=== PATIENT | male | born 1970 | race Caucasian/White ===

== ENCOUNTER 2023-09-06 14:05 | Outpatient (OUT) | payer BC, SELFPAY | END 2023-09-06 14:06 | disposition home or self-care (01) | LOC: LAB 14:09 | PROVIDERS: PCP Family Medicine | DX: Z01.818 Encounter for other preprocedural examination (principal) | CPT/HCPCS: 87081 ==

== ENCOUNTER 2023-10-20 14:46 | Outpatient (RCR) | payer BC, SELFPAY | END 2024-01-12 12:40 | disposition home or self-care (01) | LOC: PT 14:46 | PROVIDERS: PCP Family Medicine | DX: M12.561 Traumatic arthropathy, right knee (principal) | CPT/HCPCS: 97010; 97110; 97112; 97113; 97140 ==

== ENCOUNTER 2024-10-19 14:58 | Outpatient (OUT) | payer BC, SELFPAY ==
--- NOTE | 2024-10-19 15:00 | MR_ITS ---
[facility] [id number] Patient Name: TORO GARCÍA MRN: [id number] date: 1970 Sex: M Assigned Patient Location: MRI Current Patient Location: Accession/Order Number: [id number] Exam Date: 10/19/2024 15:15 Report Date: 10/20/2024 06:49 At the request of: FAVIAN HARDING Procedure: MR thoracic spine wo con EXAMINATION: MR thoracic spine wo con HISTORY: Chronic Pain Due To Injury, Closed Fracture 7th Vertebra COMPARISON: No relevant comparison available. TECHNIQUE: Axial T2; Sagittal T1, T2, and Stir sequences. Images were performed without contrast. FINDINGS: CORD: Normal caliber, contour, and signal intensity. BONES: Slight anterior wedging of T6 vertebral body consistent with patient history of remote compression fracture. No abnormal T2 signal within the vertebral body to suggest progression of fracture. Small area of mild T2 signal involving anterior inferior corner of T7 favoring degenerative/edematous/Modic type I changes. Skin surface marker localizing patient's area of pain is posterior to T9-T10, without appreciable abnormality. Mild foramen narrowing at this level. DISCS: No significant disc space narrowing or appreciable disc protrusion. PARASPINAL AREA: No visible mass. OTHER: Negative. MR/MR thoracic spine wo con IMPRESSION: 1. No acute or specific findings to account for patient's symptoms. 2. Chronic changes detailed above. Electronically authenticated by: ADDY FISHER Date: 10/20/2024 06:49
--- OUTSIDE RECORDS SUMMARY | 2024-10-19 15:04 | XMS_ITS | CCD ---
Author Organization [facility] Care Team Providers Care Sack Cleaner Name Role Phone GENEVIEVE REARDON Admitting Unavailable GENEVIEVE REARDON Unavailable GENEVIEVE REARDON Attending Unavailable DR YENY SHIELDS Primary Care Unavailable ALYSON, DR RAMOS Primary Care Unavailable ALE LUO Admitting Unavailable ALE LUO Consulting Unavailable ALE LUO Attending Unavailable YENY SHIELDS Primary Care Unavailable YENY SHIELDS Referring Unavailable CAROLINA WELLER Admitting Unavailable CAROLINA WELLER Attending Unavailable Yeny Shields MD Unavailable Yeny Shields MD Primary Care Provider [phone] YENY SHIELDS Attending Unavailable FAVIAN LOPEZ Attending Unavailable DARIEL KU Attending Unavailable ANGELLA, DARIEL Attending Unavailable ANGELLA, DARIEL Attending Unavailable DARIEL KU Admitting Unavailable DARIEL KU Referring Unavailable ANGELLA, DARIEL Attending Unavailable Medications Current Medications Medication Drug Class(es) Dates Sig (Normalized) Sig (Original) [id number] 200 actuat albuterol 0.09 mg/actuat metered dose inhaler (4 sources) beta2-Adrenergic Agonist Start: 09-27-2024 End: 09-27-2025 take 2 puff(s) by inhalation every four hours for wheezing albuterol HFA (ProAir HFA) 90 mcg/act inhaler Indications: Exercise-induced asthma (CMS/HCC) Inhale 2 puffs every 4 (four) hours if needed for wheezing 18 g 11 09/27/2024 09/27/2025 Active End: 09-27-2024 albuterol HFA (ProAir HFA) 9 0 mcg/act inhaler 09/27/2024 Discontinued (Reorder) amoxicillin 875 mg oral tablet (2 sources) Penicillin-class Antibacterial Start: 09-27-2024 End: 10-07-2024 take 1 tablet by mouth in the morning amoxicillin (Amoxil) 875 MG tablet Indications: Non-recurrent acute suppurative otitis media of left ear without spontaneous rupture of tympanic membrane Take 1 tablet (875 mg) by mouth in the morning and 1 tablet (875 mg) before bedtime. Do all this for 10 days. 20 tablet 09/27/2024 10/07/2024 Active aspirin 325 mg oral tablet (2 sources) Platelet Aggregation Inhibitor, Nonsteroidal Anti-inflammatory Drug Start: 10-07-2023 take 1 tablet by mouth in the morning aspirin 325 MG tablet Take 325 mg by mouth in the morning. 10/07/2023 Active atorvastatin 20 mg oral tablet (5 sources) HMG-CoA Reductase Inhibitor Start: 05-08-2024 End: 09-27-2025 take 1 tablet by mouth once daily atorvastatin (Lipitor) 20 MG tablet Indications: Hypertriglyceridemia (CMS/HCC) Take 1 tablet (20 mg) by mouth Daily 90 tablet 3 09/27/2024 09/27/2025 Active baclofen 10 mg oral tablet (5 sources) gamma-Aminobutyric Acid-ergic Agonist Start: 05-17-2024 End: 09-27-2025 take 1 tablet by mouth in the morning, then take 1 tablet by mouth in the evening, then take 1 tablet by mouth at bedtime baclofen (Lioresal) 10 MG tablet Indications: Personal history of (healed) traumatic fracture Take 1 tablet (10 mg) by mouth in the morning and 1 tablet (10 mg) in the evening and 1 tablet (10 mg) before bedtime. 270 tablet 3 09/27/2024 09/27/2025 Active busPIRone hydrochloride 5 mg oral tablet (5 sources) Start: 09-27-2024 take 1 tablet by mouth three times daily as needed for anxiety busPIRone (Buspar) 5 MG tablet Indications: Adjustment disorder with anxiety (CMS/HCC) Take 1 tablet (5 mg) by mouth 3 (three) times a day as needed (anxiety) 90 tablet 3 09/27/2024 Active Start: 09-27-2024 take 1 tablet by elaina th three times daily as needed for anxiety busPIRone (Buspar) 5 MG tablet Indications: Adjustment disorder with anxiety (CMS/HCC) Take 1 tablet (5 mg) by mouth 3 (three) times a day as needed (anxiety) 90 tablet 3 09/27/2024 Active Start: 06-14-2023 End: 09-27-2024 take 1 tablet by mouth three times daily as needed busPIRone (Buspar) 5 MG tablet Indications: Adjustment disorder with anxiety (CMS/HCC) TAKE 1 TABLET BY MOUTH THREE TIMES A DAY NEEDED 90 tablet 13 06/14/2023 09/27/2024 Discontinued (Reorder) citalopram 40 mg oral tablet (5 sources) Serotonin Reuptake Inhibitor Start: 09-27-2024 End: 09-27-2025 take 1 tablet by mouth once daily citalopram (CeleXA) 40 MG tablet Indications: Adjustment disorder with depressed mood (CMS/HCC) Take 1 tablet (40 mg) by mouth Daily 90 tablet 3 09/27/2024 09/27/2025 Active Start: 03-20-2024 End: 09-27-2024 take 1.5 tablets by mouth once daily citalopram (CeleXA) 20 MG tablet Indications: Adjustment disorder with anxiety (CMS/HCC) Take 1.5 tablets (30 mg) by mouth Daily 45 tablet 03/20/2024 09/27/2024 Discontinued (Ineffective) gabapentin 300 mg oral capsule (5 sources) Anti-epileptic Agent Start: 09-27-2024 End: 09-27-2025 take 1 capsule by mouth in the morning, then take 1 capsule by mouth in the evening, then take 1 capsule by mouth at bedtime gabapentin (Neurontin) 300 MG capsule Indications: Personal history of (healed) traumatic fracture , Chronic pain due to injury Take 1 capsule (300 mg) by mouth in the morning and 1 capsule (300 mg) in the evening and 1 capsule (300 mg) before bedtime. 90 capsule 11 09/27/2024 09/27/2025 Active Start: 04-25-2024 End: 04-25-2025 take 1 capsule by mouth every eight hours gabapentin (Neurontin) 100 MG capsule Indications: Personal history of (healed) traumatic fracture Take 1 capsule (100 mg) by mouth every 8 (eight) hours 90 capsule 11 04/25/2024 09/27/2024 Discontinued (Ineffective) hydroCHLOROthiazide 12.5 mg / olmesartan medoxomil 40 mg oral tablet (5 sources) Thiazide Diuretic, Angiotensin 2 Receptor Kiara Start: 01-08-2025 take 1 tablet by mouth once daily olmesartan-hydroCHLOROthiazide (BENIcar HCT) 40-12.5 MG tablet Indications: Essential (primary) hypertension (CMS/HCC) Take 1 tablet by mouth Daily 90 tablet 3 09/27/2024 Active Start: 09-27-2024 take 1 tablet by elaina th once daily olmesartan-hydroCHLOROthiazide (BENIcar HCT) 40-12.5 MG tablet Indications: Essential (primary) hypertension (CMS/HCC) Take 1 tablet by mouth Daily 90 tablet 3 09/27/2024 Active Start: 01-12-2024 End: 09-27-2024 take 1 tablet by mouth once daily olmesartan-hydroCHLOROthiazide (BENIcar HCT) 40-12.5 MG tablet Indications: Essential (primary) hypertension (CMS/HCC) TAKE 1 TABLET BY MOUTH EVERY DAY 90 tablet 1 01/12/2024 09/27/2024 Discontinued (Reorder) traMADol hydrochloride 50 mg oral tablet (2 sources) Opioid Agonist Start: 09-27-2024 End: 10-04-2024 take 1 tablet by mouth every six hours for pain traMADol (Ultram) 50 MG tablet Indications: Chronic pain due to injury Take 1 tablet (50 mg) by mouth every 6 (six) hours if needed for severe pain for up to 7 days 28 tablet 09/27/2024 10/04/2024 Active Problems Active Problems Problem Classification Problem Date Documented Da te Episodic/Chronic Adjustment disorders (10 sources) Adjustment disorder with anxious mood; Translations: [Adjustment disorder with anxiety] Onset: 05-10-2008 10-18-2023 Chronic Asthma (5 sources) Exercise-induced asthma; Translations: [Exercise induced bronchospasm] Onset: 03-07-2019 10-18-2023 Chronic Disorders of lipid metabolism (8 sources) Hypertriglyceridemi a; Translations: [Hyperchylomicronem ia] Onset: 05-10-2008 10-18-2023 Chronic E Codes: Cut/pierceb (1 source) Other foreign body or object entering through skin, initial encounter; Translations: [OTH FB/OBJ ENTERING THRU SKIN INIT] Onset: 12-30-2021 Episodic Essential hypertension (5 sources) Essential hypertension; Translations: [Essential (primary) hypertension] Onset: 06-01-2018 10-18-2023 Chronic Joint disorders and dislocations; trauma-related (5 sources) Traumatic arthropathy-knee; Translations: [Traumatic arthropathy, right knee] Onset: 06-28-2023 10-18-2023 Chronic Malaise and fatigue (3 sources) Fatigue; Translations: [Chronic fatigue, unspecified] Onset: 10-18-2023 10-18-2023 Chronic Mood disorders (3 sources) Depressive disorder; Translations: [Depressive disorder] Onset: 05-10-2008 10-18-2023 Chronic Open wounds of extremities (4 sources) Laceration without foreign body of right hand, initial encounter; Translations: [LACERATION W/O FB RT HAND INITIAL] Onset: 12-26-2021 Episodic Other fractures (2 sources) Fracture of seventh thoracic vertebra; Translations: [Unspecified fracture of T7-T8 vertebra, sequela] 09-27-2024 Episodic Other injuries and conditions due to external causes (5 sources) H/O: fracture; Translations: [Personal history of (healed) traumatic fracture] Onset: 10-18-2023 10-18-2023 Episodic Other male genital disorders (3 sources) Male erectile dysfunction, unspecified; Translations: [Impotence of organic origin] Onset: 10-18-2023 10-18-2023 Chronic Other nervous system disorders (7 sources) Chronic pain due to injury; Translations: [Chronic pain due to trauma] Onset: 10-18-2023 10-18-2023 Chronic Other nervous system disorders (3 sources) Chronic pain; Translations: [Other chronic pain] Onset: 05-10-2008 10-18-2023 Chronic Other nutritional; endocrine; and metabolic disorders (3 sources) Cholesterol level - finding; Translations: [Lipoprotein deficiency] Onset: 10-18-2023 10-18-2023 Chronic Other upper respiratory infections (3 sources) Sinusitis; Translations: [Chronic sinusitis, unspecified] Onset: 10-18-2023 10-18-2023 Chronic Otitis media and related conditions (2 sources) Acute suppurative otitis media without spontaneous rupture of ear drum; Translations: [Acute suppurative otitis media without spontaneous rupture of ear drum, left ear] 09-27-2024 Episodic Unclassified (2 sources) Fracture of seventh thoracic vertebra 09-27-2024 Past or Other Problems Problem Classification Problem Date Documented Da te Episodic/Chronic Fracture of lower limb (10 sources) Closed fracture of right patella; Translations: [Unspecified fracture of right patella, initial encounter for closed fracture] Onset: 08-02-2019 10-18-2023 Episodic Immunizations and screening for infectious disease (4 sources) Encounter for immunization; Translations: [Suspected clinical finding] Onset: 12-30-2021 10-18-2023 Episodic Other fractures (3 sources) Closed fracture thoracic vertebra; Translations: [Unspecified fracture of unspecified thoracic vertebra, initial encounter for closed fracture] Onset: 05-10-2008 10-18-2023 Episodic Residual codes; unclassified (3 sources) Family history of prostate cancer; Translations: [Family history of malignant neoplasm of prostate] Onset: 10-18-2023 10-18-2023 Episodic Residual codes; unclassified (3 sources) Persistent insomnia; Translations: [Insomnia, unspecified] Onset: 05-10-2008 10-18-2023 Episodic Residual codes; unclassified (2 sources) Pain, unspecified; Translations: [Pain, unspecified] Onset: 10-06-2023 Episodic Spondylosis; intervertebral disc disorders; other back problems (3 sources) Low back pain; Translations: [Lumbago] Onset: 05-10-2008 10-18-2023 Episodic Sprains and strains (6 sources) Lumbar sprain; Translations: [Sprain of ligaments of lumbar spine, initial encounter] Onset: 05-10-2008 10-18-2023 Episodic Results Test Name Value Interpretation Reference Range Facil ity 36on 09-27-2024 36 Gave the esol teacher assistant Karina Morales information [facility] 36 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 States he has left multiple messages and haven't received any word back. He states he doesn't want to subpeona dr ku but he will if he needs to. Normal [facility] Follow-Upon 01-31-2024 Follow-Up [id number] Mario García 1970 M Date Provider Department Center 01/31/2024 DARIEL MILLAN MP ORTHO MPORTHO Family History Problem Relation Age of Onset Diabetes Mother Diabetes Father Family Status - Relation Status Age at Mother Alive Father Alive Level of Service:06813 [place] OFFICE/OUTPATIENT ESTABLISHED LOW MDM 20 MIN Reason for Visit and Comments: Pain [136] [facility] 36on 01-03-2024 36 Work note was emailed Normal [facility] 36 Patient will be returning to work on wed, employer requesting note to be emailed. Please give patient a call back with additional requested information, thank you [facility] 36on 12-20-2023 36 Approving, but needs appt for additional refills. [facility] 36on 12-07-2023 36 Note was faxed to [phone] [facility] 36 PATIENT WOULD LIKE A CALL REGARDING DISABILITY DATE CHANGE [facility] Orders Onlyon 12-07-2023 Orders Only [id number] Mario García 1970 M Date Provider Department Center 12/07/2023 GHAZALA FAUSTIN MP ORTHO MPORTHO Family History Problem Relation Age of Onset Diabetes Mother Diabetes Father Family Status - Relation Status Age at Mother Alive Father Alive [facility] Office Visiton 11-29-2023 Follow-up visit [id number] Mario García 1970 M Date Provider Department Center 11/29/2023 DARILE MILLAN MP MPORTHO Family History Problem Relation Age of Onset Diabetes Mother Diabetes Father Family Status - Relation Status Age at Mother Alive Father Alive Level of Service:05279 [place] POSTOP FOLLOW UP VISIT RELATED TO ORIGINAL PX Reason for Visit and Comments: Pain [136] [facility] 36on 11-17-2023 36 Work note was faxed Normal [facility] 36 Insurance calling to see if theres an estimated RTW date. Please call or fax a letter over. [facility] 36on 11-10-2023 36 Approving, but needs appt for additional refills. [facility] Office Visiton 10-18-2023 Follow-up visit [id number] Mario García 1970 M Date Provider Department Center 10/18/2023 DARIEL MILLAN MP ORTHO MPORTHO Family History Problem Relation Age of Onset Diabetes Mother Diabetes Father Family Status - Relation Status Age at Mother Alive Father Alive Level of Service:89312 [place] POSTOP FOLLOW UP VISIT RELATED TO ORIGINAL PX Reason for Visit and Comments: Post-op [483] Normal [facility] 30on 10-06-2023 30 Problem: Pain - Adul t Goal: Verbalizes/displays adequate comfort level or baseline comfort level Outcome: Progressing Problem: Chronic Conditions and Co-morbidities Goal: Patient's chronic conditions and co-morbidity symptoms are monitored and maintained or improved Outcome: Progressing Problem: Musculoskeletal - Adult Goal: Maintain proper alignment of affected body part Outcome: Progressing The patient is Moderately Stable - Low risk of patient condition declining or worsening The patient's goals for the shift include The clinical goals for the shift include comfort Over the shift, the patient did not make progress toward the following goals. Barriers to progression include pain. Recommendations to address these barriers include pain control. Normal [facility] Anesthesiaon 10-06-2023 Anesthesia [id number] Mario García 1970 M Date Provider Department Center 10/06/2023 [facility] OR [facility] Family History Problem Relation Age of Onset Diabetes Mother Diabetes Father Family Status - Relation Status Age at Mother Alive Father Alive Normal [facility] MRSA/MSSA DNA NASALon 2023 MRSA DNA Negative Normal Negative [facility] Comment on above: Order Comment: Testi ng methodology is an automated qualitative in vitro diagnostic test for the directdetection and differentiation of Staphylococcus aureus (SA) DNA and methicillin-resistant Staphylococcus aureus (MRSA) DNA from nasal swabs in patients at risk for nasal colonization. The test utilizes real-time polymerase chain reaction (PCR) for the amplification of MRSA/SA DNA and fluorogenic target-specific hybridization probes for the detection of the amplified DNA. A negative result does not preclude nasal colonization. Performed By: #### L [id number] ####[facility] (BEAKER)[address] [place] [address] MSSA DNA Negative Normal Negative [facility] Comment on above: Order Comment: Testi ng methodology is an automated qualitative in vitro diagnostic test for the directdetection and differentiation of Staphylococcus aureus (SA) DNA and methicillin-resistant Staphylococcus aureus (MRSA) DNA from nasal swabs in patients at risk for nasal colonization. The test utilizes real-time polymerase chain reaction (PCR) for the amplification of MRSA/SA DNA and fluorogenic target-specific hybridization probes for the detection of the amplified DNA. A negative result does not preclude nasal colonization. 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 11MM TAPER POST Implanted Bone Cement CEMENT,BONE,R,[id number] - [id number] Implanted FEMORAL-TROCHLEA X-LARGE -ARTHROSURFACE Implanted PATELLA-ANATOMIC Implanted Staff: Veneer Taper: Joan Aguila RN; Myah Mason RN Relief Scrub: Valarie Goodson CST Scrub Person: Masha Cuevas CST Indications: Toro García is an 52 y.o. male who is having surgery for Traumatic arthritis of right knee [M12.561]. Procedure Details: The patient was seen in the preoperative area. The risks, benefits, complications, treatment options, non-operative alternatives, expected recovery and outcomes were discussed with the patient. The possibilities of reaction to medication, pulmonary aspiration, injury to surrounding structures, bleeding, recurrent infection, the need for additional procedures, failure to diagnose a condition, and creating a complication requiring transfusion or operation were discussed with the patient. The patient concurred with the proposed plan, giving informed consent. The site of surgery was properly noted/marked if necessary per policy. The patient has been actively warmed in preoperative area. Preoperative antibiotics have been ordered and given within 1 hours of incision. Venous thrombosis prophylaxis have been ordered including unilateral sequential compression device Findings: After confirmation and marking of the correct surgical extremity in the preoperative holding area, the patient was brought back to the operating suite and placed in the supine position. All pressure points were adequately padded. General endotracheal anesthesia was smoothly induced preoperative antibiotics were administered. The right knee was then prepped and draped in a sterile fashion. After observation of a surgical timeout procedure using 2 separate patient identifiers, we began with the case. We first created a standard midline incision and medial parapatellar approach to expose the joint. Here he had isolated PF DJD. The trochlea had thinned chondral loss centrally and medially. The patella had full thickness loss centrally. 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 This piece was excised using the rongeur. We first started with the resurfacing of the trochlea. We placed the guide and reamed an anatomic trochlear implant. We next inserted the central screw and then impacted the Arthrosurface HemiCAP trochlear implant. We now turned our attention to the patella. We sized the defect, then reamed and cemented in the Arthrosurface Patellar Button. Once the cement had cured, we let down the tourniquet. There was minimal bleeding. We then closed the medial parapatellar approach with 0 Vicryl in [id number] sutures followed by 0 Vicryl 2-0 Vicryl and a running subcuticular Biosyn suture for the skin incision. A sterile compressive wrap was applied followed by a knee immobilizer. Patient was then awakened and extubated and brought back to the PACU in stable condition I was present scrubbed and actively participating through all ernandez portions of the surgery estimated blood loss is minimal complications are none disposition is to the PACU in stable condition I was present scrubbed and actively participated for all ernandez portions of the procedure Complications: None; patient tolerated the procedure well. Disposition: PACU - hemodynamically stable. Condition: stable Dariel Ku Normal [facility] POCT GLUCOSE METER UNSOLICIT ED RESULTSon 10-06-2023 Glucose [Mass/Vol] 99 mg/dL Normal 70-105 [facility] Comment on above: Order Comment: Waive d Testing in the ED is performed under the ED CLIA certificate #[id number]. Result Comment: acle ment Performed By: #### L [id number] ####[facility] ([facility] [address])[address] [place] [address] on 10-05-2023 HP - Attestation signed by Dariel Ku MD at 10/06/2023 3:57 PM I personally saw and examined the patient on the same date of service as resident/fellow . I discussed the findings and therapeutic plan with the resident/fellow . I agree with the documentation, except for any edits/updates below. Teaching Physician's Revisions: No revisions ORTHOPEDIC SURGERY HISTORY AND PHYSICAL EXAMINATION CHIEF COMPLAINT: RIGHT KNEE PAIN HPI: Toro García is a 52 y.o. male with complaint of right knee pain. Pain began after they had a work related injury several years ago for which she fractured his right patella and underwent open duction internal fixation.. Patient had a right knee arthroscopy and hardware removal in 2020. Patient has undergone physical therapy and conservative measures with minimal improvement. He still undergoes intermittent clicking popping and swelling. Patient has x-ray demonstrating superior pole nonunion of the patella and postoperative posttraumatic changes. Patient also had MRI taken 06-07-2023 demonstrating superior pole patella irregularity concerning for nonunion as well as medial retinacular irregularities with evidence of intact ligaments no other obvious fractures or dislocations. Patient presents today for right knee nonunion excision with patellofemoral replacement. He denies any recent infections any additional systemic symptoms. His pain is largely unchanged.. They deny any other injuries. PMH: Anxiety, fatigue, depression, diabetes, hyperlipidemia, hypertension Pertinent Surgical Hx: ORIF right patella, right knee arthroscopy and hardware removal 2020 Pertinent Social Hx: Lives at home Currently taking any blood thinners: No known Personal or family history of bleeding or clotting disorders: No known Personal or family history of problems with anesthesia: No known Past Medical History: Diagnosis Date Anxiety Asthma Chronic fatigue Chronic pain disorder Closed fracture of dorsal (thoracic) vertebra (CMS/HCC) Depression Diabetes mellitus (CMS/HCC) ED (erectile dysfunction) Hyperlipidemia Hypertension Lumbago Sinusitis Traumatic arthritis of right knee Traumatic closed displaced fracture of patella with routine healing, right Past Surgical History: Procedure Laterality Date COLONOSCOPY KNEE SURGERY Right x2 No Known Allergies No current facility-administered medications for this encounter. Current Outpatient Medications: acetaminophen (Tylenol) 500 mg tablet, Pain Relief Extra Strength (acetaminophen) 500 mg tablet, Disp: , Rfl: albuterol 90 mcg/actuation inhaler, ProAir HFA 90 mcg/actuation aerosol inhaler, Disp: , Rfl: atorvastatin (Lipitor) 20 mg tablet, TAKE 1 TABLET BY MOUTH EVERY DAY FOR 90 DAYS, Disp: , Rfl: busPIRone (Buspar) 5 mg tablet, Take 5 mg by mouth if needed in the morning, at noon, and at bedtime., Disp: , Rfl: citalopram (CeleXA) 20 mg tablet, TAKE 1 AND 1/2 TABLETS DAILY BY MOUTH, Disp: , Rfl: olmesartan-hydrochlor othiazide (BENIcar HCT) 40-12.5 mg tablet, olmesartan 40 mg-hydrochlorothiazid e 12.5 mg tablet, Disp: , Rfl: Trelegy Ellipta 100-62.5-25 mcg blister with device, INHALE 1 PUFF INTO THE LUNGS EVERY DAY FOR 30 DAYS, Disp: , Rfl: Social History Socioeconomic History Marital status: Spouse name: Not on file Number of children: Not on file Years of education: Not on file Highest education level: Not on file Occupational History Not on file Tobacco Use Smoking status: Never Passive exposure: Never Smokeless tobacco: Never Vaping Use Vaping Use: Never used Substance and Sexual Activity Alcohol use: Not Currently Drug use: Never Sexual activity: Not on file Other Topics Concern Not on file Social History Narrative Not on file Social Determinants of Health Financial Resource Strain: Not on file Food Insecurity: Not on file Transportation Needs: Not on file Physical Activity: Not on file Stress: Not on file Social Connections: Not on file Intimate Partner Violence: Not At Risk (05/18/2023) Humiliation, Afraid, Rape, and Kick questionnaire Fear of Current or Ex-Partner: No Emotionally Abused: No Physically Abused: No Sexually Abused: No Housing Stability: Not on file Family History Problem Relation Name Age of Onset Diabetes Mother Diabetes Father Pertinent review of systems negative except for what is documented in the HPI. Physical exam: There were no vitals filed for this visit. General: No acute distress, comfortable Respiratory: Unlabored breathing with normal rate, no cough Cardiovascular: Warm well perfused extremities Psych: Appropriate mood behavior MSK: Right lower extremity -Examination the right knee reveals skin clean dry and intact. Well-healed surgical inc (more content not included)... Normal [facility] Patient Letter [facility] [place] 2022 Patient [place] [facility] [place] 07, 2023 TORO GARCÍA [address] [place] [phone] : 1970 Dear Toro, This is a SECOND ATTEMPT to remind you that you are due for an appointment with [facility]. Please contact our office at [phone] to schedule an appointment at your earliest convenience. Thank you, [facility] Patient Letter [facility] 2022 Patient Letter [facility] May 05, 2023 TORO GARCÍA [address] [place] [id number] : 1970 Dear Toro, This is a reminder that you are due for an appointment with [facility]. Please contact our office at [phone] to schedule an appointment at your earliest convenience. Thank you, [facility] In office Testingon 09-03-20 22 In office Testing [id number]:127 Normal [facility] KNEE RIGHT 3 [facility] 1 KNEE RIGHT 3 S [facility] Department of Radiology [address] [place] [phone] Patient Name: TORO GARCÍA : 1970 Sex: M Age: Race: White Pt. Location: Patient Status: D Ordered Date: 08/28/2021 2:30:00 PM Completed Date: 08/28/2021 02:31 PM Requesting Provider: CAROLINA WELLER Attending Provider: CAROLINA WELLER Report Copy To: YENY SHIELDS Signs & Symptoms: S82.031D Displ transverse fx r patella, subs for clos fx w routn heal I10 History: Comments: Views (X-RAY, KNEE): AP, Lateral, [place] Exam: KNEE RIGHT 3 [facility] KNEE RIGHT 3 [facility] HISTORY: Knee pain, fracture follow-up. COMPARISON: 04/11/2021. IMPRESSION: 1. Unchanged alignment superior patellar pole transverse fracture, incompletely healing. 2. Small joint effusion. Unchanged superior mildly displaced osseous fragment measuring 5 mm. Electronically signed: Damian Keys. Transcribed by: [email or web address], User Resident: Electronically Signed by: DAMIAN KEYS @ 08/29/2021 04:17 PM Normal [facility] Comment on above: Order Comment: Views (X-RAY, KNEE): AP, Lateral, [place] EYE FOR FOREIGN BODYon 05-06 EYE FOR FOREIGN BODY [facility] Department of Radiology [address] [place] [phone] Patient Name: TORO GARCÍA : 1970 Sex: M Age: Race: White Pt. Location: OUTP Patient Status: O Ordered Date: 05/06/2021 11:20:00 AM Completed Date: 05/06/2021 11:23 AM Requesting Provider: CAROLINA WELLER Attending Provider: CAROLINA WELLER Report Copy To: Signs & Symptoms: Eye detect foreign body, screening for MRI History: Eye detect foreign body, screening for MRI Comments: Evaluate Exam: EYE FOR FOREIGN BODY EYE FOR FOREIGN BODY 05/06/2021 11:23 AM CLINICAL INDICATIONS: Eye detect foreign body, screening for PUBLIC HEALTH DIETITIAN COMMENTS: Eye detect foreign body, screening for MRI History of working with metal shavings. QUESTION FOR THE RADIOLOGIST: Evaluate PROTOCOL: PA Patel view with eyes looking up and eyes looking down were obtained. COMPARISON: None IMPRESSION: No radiopaque foreign bodies projecting over the orbits. Electronically signed: Damian Keys. Transcribed by: [email or web address], User Resident: Electronically Signed by: DAMIAN KEYS @ 05/06/2021 11:30 AM Normal [facility] Comment on above: Order Comment: Evalu ate MRI KNEE WO CONTRAST RIGHTon 05-06-2021 MRI KNEE WO CONTRAST RIGHT [facility] Department of Radiology [address] [place] [phone] Patient Name: TORO GARCÍA : 1970 Sex: M Age: Race: White Pt. 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 COMPARISON: 04/11/2021 PROCEDURE: [id number], multiplanar MR images of the knee were obtained. FINDINGS: Mild joint effusion. Trace fluid in the medial gastroc/semimembranos us bursa. No intra-articular loose bodies. MENISCI Medial meniscus: Intact Lateral meniscus: Intact LIGAMENTS Cruciate ligaments: Degenerative signal in the ACL without tear. PCL is intact Medial collateral ligament complex: Unremarkable Lateral collateral ligament complex: Unremarkable. Other: The IT band, biceps femoris tendon, and popliteus tendons are unremarkable. The pes anserinus tendons are unremarkable. EXTENSOR MECHANISM Extensor mechanism: Increased fluid signal in the quadricep tendon at the insertion. Suprapatellar fat pad with increased fluid signal which can be seen with suprapatellar fat impingement or sequelae of prior trauma. Undulation of the lateral patellofemoral ligament and retinaculum with increased fluid signals consistent with complete tear. Patella aguila (Emmanuel-Apolonia Ratio=1.3). The patellar ligament is intact. OSSEOUS and ARTICULAR STRUCTURES Bones: Superior patellar fracture with adjacent osseous edema and cystic changes. The fracture fragment is mildly superiorly and posteriorly displaced. No osteonecrosis. No suspicious osseous lesion. Patellofemoral compartment: Chondromalacia in the patellar cartilage which has diffuse thinning without osteochondral defect. There is subchondral cystic changes. The cartilage over the femoral groove is unremarkable. Medial compartment: Mild diffuse thinning without focal defect in the weightbearing cartilage Lateral compartment: Mild diffuse thinning without focal defect in the weightbearing cartilage IMPRESSION: * Superior patellar fracture with mildly superiorly and posteriorly displaced fracture fragment. Metal hardware artifact consistent with prior surgery in that region. Cystic changes and osseous edema around the fracture site. * Mild tendinopathy at the quadricep tendon around the insertion likely related to the superior patellar fracture. * Suprapatellar fat edema which can be seen with impingement or sequelae of superior patellar fracture. * Patella aguila. 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 I, Shayy Guevara,have reviewed the image(s) and agree with the findings in this report. Electronically signed: Shayy Guevara. Transcribed by: [email or web address], User Resident: DESTINY SAVAGE Electronically Signed by: SHAYY GUEVARA @ 05/06/2021 04:27 PM I personally read this/these film(s) with this resident Normal The [facility] Comment on above: Order Comment: appro carlie is scanned in RIS KNEE RIGHT 3 [facility] 1 KNEE RIGHT 3 [facility] Department of Radiology [address] [place] [phone] Patient Name: TORO GARCÍA : 1970 Sex: M Age: Race: White Pt. Location: 84 Patient Status: O Ordered Date: 04/11/2021 10:10:00 AM Completed Date: 04/11/2021 10:07 AM Requesting Provider: CAROLINA WELLER Attending Provider: CAROLINA WELLER Report Copy To: Signs & Symptoms: S82.031D Displ transverse fx r patella, subs for clos fx w routn heal I10 History: Comments: AP, Lateral, [place] Exam: KNEE RIGHT 3 [facility] KNEE RIGHT 3 [facility] 04/11/2021 10:07 AM CLINICAL INDICATIONS: S82.031D Displ transverse fx r patella, subs for clos fx w routn heal I10 TECHNOLOGIST COMMENTS: ortho follow up. surgery to the right knee 12/06/20 QUESTION FOR THE RADIOLOGIST: AP, Lateral, [place] PROTOCOL: AP,Lateral and Tangential views were obtained. COMPARISON: 12/19/2020 Impression: 1. There is a stable known patellar fracture with some evidence of healing. I see no other fracture or dislocation. Electronically signed: Suzette Trujillo. Transcribed by: [email or web address], User Resident: Electronically Signed by: SUZETTE TRUJILLO @ 04/11/2021 10:28 AM Normal [facility] Comment on above: Order Comment: AP, L ateral, [place] Vital Signs Date Time Vital Sign Value Performing Clinician Brittny mota 09-27-2024 09:29-0500 Body height 175.3 cm Favian Lopez JEWELRY REPAIRER Work Phone: [facility] 09-27-2024 09:29-0500 Body mass index (BMI) [Ratio] 33.32 kg/m2 Favian Lopez JEWELRY REPAIRER Work Phone: [facility] 09-27-2024 09:29-0500 Body weight 102.33 kg Favian Lopez JEWELRY REPAIRER Work Phone: [facility] 09-27-2024 09:29-0500 Diastolic blood pressure 80 mm[Hg] Favian Lopez JEWELRY REPAIRER Work Phone: [facility] 09-27-2024 09:29-0500 Heart rate 65 /min Favian Lopez JEWELRY REPAIRER Work Phone: [facility] 09-27-2024 09:29-0500 Respiratory rate 17 /min Favian Lopez JEWELRY REPAIRER Work Phone: [facility] 09-27-2024 09:29-0500 SaO2% (BldA) [Mass fraction] 98 % Favian Lopez JEWELRY REPAIRER Work Phone: [facility] 09-27-2024 09:29-0500 Systolic blood pressure 160 mm[Hg] Favian Lopez JEWELRY REPAIRER Work Phone: [facility] Encounters Encounter Date Encounter Type Care Provider Facility Start: 09-27-2024 End: 09-27-2024 Bamboo flowsheet Favian Lopez JEWELRY REPAIRER Work Phone: [facility] Start: 09-27-2024 End: 09-27-2024 Bamboo flowsheet Favian Lopez JEWELRY REPAIRER Work Phone: [facility] Start: 09-27-2024 End: 09-27-2024 Office outpatient visit 25 minutes Favian Lopez JEWELRY REPAIRER Work Phone: [facility] Comment on above: Exercise-induced ast hma (CMS/HCC) (Primary Dx); Hypertriglyceridemia (CMS/HCC); Personal history of (healed) traumatic fracture; Adjustment disorder with anxiety (CMS/HCC); Adjustment disorder with depressed mood (CMS/HCC); Chronic pain due to injury; Essential (primary) hypertension (CMS/HCC); Non-recurrent acute suppurative otitis media of left ear without spontaneous rupture of tympanic membrane; Closed fracture of seventh thoracic vertebra, unspecified fracture morphology, sequela Start: 09-27-2024 End: 09-27-2024 ambulatory FAVIAN LOPEZ Not Available Start: 04-25-2024 End: 04-25-2024 ambulatory YENY SHIELDS Not Available Start: 01-31-2024 ambulatory DARIEL [facility] Start: 11-29-2023 ambulatory DARIEL [facility] Start: 10-18-2023 ambulatory DARIEL [facility] Start: 10-06-2023 ambulatory [facility] Start: 10-06-2023 End: 10-07-2023 Evaluation and management of inpatient DARIEL [facility] Start: 12-26-2021 End: 12-26-2021 ambulatory GENEVIEVE ALEXYS Facility: Start: 05-06-2021 End: 05-07-2021 ambulatory YENY SHIELDS Facility:[facility] Start: 01-09-2021 End: 01-10-[address] YENY SHIELDS Facility: Plan of Treatment Date Care Activity Detail Author Start: 09-27-2024 End: 09-27-2025 MR Thoracic spine WO contrast MR thoracic spine wo contrast Imaging Routine Chronic pain due to injury Closed fracture of seventh thoracic vertebra, unspecified fracture morphology, sequela Expected: 09/27/2024, Expires: 09/27/2025 [facility] Work Phone: Comment on above: Expected: 09/27/2024 , Expires: 09/27/2025 Start: 09-27-2024 End: 09-27-2024 Patient encounter procedure 09/27/2024 9:30 AM EST Office Visit [facility] [address] [facility] [address] [place] [id number] Favian Lopez NP [address] [place] [facility] [address] [place] [address] Arrived [facility] Comment on above: Arrived Start: 05-21-2024 Influenza vaccination Influenza Vacc ine (#1) [facility] Immunizations Immunization Date Immunization Notes Care Provider Fa cility 12-26-2021 diphtheria, tetanus toxoids and pertussis vaccine Favian Lopez JEWELRY REPAIRER Work Phone: [facility] Payers Date Payer Category Payer [facility] BCBS [id number] 2020 Unknown [id number] 1970 Unknown [id number] 1970 Unknown [id number] 1970 Unknown [id number] 1970 Unknown [id number] 1960 Self-pay 1960 Unknown [id number] Unknown [id number] Social History Date Type Detail Facility Start: 04-25-2024 Tobacco smoking stat [facility] Never smoked tobacco [facility] Start: 04-25-2024 Tobacco use and exposure Smoke less tobacco non-user [facility] Start: 04-25-2024 End: 09-27-2024 History of Social function [facility] Start: 04-25-2024 End: 09-27-[address] [facility] Start: 1970 Sex assigned at Not on file [facility] Start: 09-27-2024 Alcoholic beverage intake Defer [facility] Clinical Notes 10-06-2023 to 09-27-2024 Favian Lopez NP - 09/27/2024 9:30 AM EST Note Date & Type Note Facility 09-27-2024 History of Present illness Narrative Images from the original note were not included. Subjective Patient ID: Toro García is a 53 y.o. male who presents for medication refills. Toro is present today for medication refills. He is still having his depression and leg pain. Sinus Problem This is a new problem. The current episode started 1 to 4 weeks ago. The problem is unchanged. There has been no fever. He is experiencing no pain. Associated symptoms include congestion, coughing, sinus pressure and sneezing. Treatments tried: Tylenol cold. The treatment provided mild relief. Depression Visit Type: follow-up Patient presents with the following symptoms: depressed mood, fatigue, feelings of worthlessness, insomnia, irritability and nervousness/anxiety. Frequency of symptoms: most days Severity: moderate Sleep per night: 5 hours Sleep quality: non-restorative Nighttime awakenings: one to two Compliance with medications: 0-25% Pain This is a chronic problem. The current episode started more than 1 year ago. The problem occurs intermittently. The problem has been gradually worsening since onset. The pain occurs in the context of an injury. The pain is present in the upper back, right upper leg, left upper leg, left forearm, right arm, left arm and upper right arm. The pain is medium. Nothing aggravates the symptoms. Associated symptoms include weakness. Treatments tried: Ultram, Gabapentin. The treatment provided mild relief. His past medical history is significant for chronic back pain. Hypertension This is a chronic problem. The current episode started more than 1 year ago. The problem has been gradually worsening since onset. The problem is uncontrolled. Risk factors for coronary artery disease include male gender. The current treatment provides significant improvement. Compliance problems: Pt ran out of medication so blood pressure has been up. Current Outpatient Medications on File Prior to Visit Medication Sig Dispense Refill atorvastatin (Lipitor) 20 MG tablet TAKE 1 TABLET BY MOUTH EVERY DAY 30 tablet 5 baclofen (Lioresal) 10 MG tablet TAKE 1 TABLET BY MOUTH IN THE MORNING,1 TAB IN THE EVENING,AND 1 TAB BEFORE BEDTIME 270 tablet 1 busPIRone (Buspar) 5 MG tablet TAKE 1 TABLET BY MOUTH THREE TIMES A DAY NEEDED 90 tablet 13 citalopram (CeleXA) 20 MG tablet Take 1.5 tablets (30 mg) by mouth Daily 45 tablet 0 gabapentin (Neurontin) 100 MG capsule Take 1 capsule (100 mg) by mouth every 8 (eight) hours 90 capsule 11 olmesartan-hydroCHLOROthiazide (BENIcar HCT) 40-12.5 MG tablet TAKE 1 TABLET BY MOUTH EVERY DAY 90 tablet 1 No current facility-administered medications on file prior to visit. I have reviewed and reconciled the history and medication list with the patient today. No Known Allergies Social History Tobacco Use Smoking status: Never Smokeless tobacco: Never Vaping Use Vaping status: Unknown Substance Use Topics Alcohol use: Defer Drug use: Defer Family History Problem Relation Name Age of Onset Diabetes Mother Past Medical History: Diagnosis Date Adjustment disorder with anxiety ([facility]) 05/10/2008 Depressive disorder ([facility]) 05/10/2008 Diabetes mellitus ([facility]) Erectile dysfunction 10/18/2023 Essential hypertension ([facility]) 06/01/2018 Exercise-induced asthma ([facility]) 03/07/2019 Hypertriglyceridemia ([facility]) 11/04/2021 Other chronic pain 05/10/2008 Traumatic arthritis of right knee 06/28/2023 Past Surgical History: Procedure Laterality Date COLON SURGERY 2019 KNEE SURGERY 2020 removal of 3 screws PATELLA SURGERY 2021 dr mallorie gonsales Visit Vitals Smoking Status Never Review of Systems Constitutional: Positive for irritability. HENT: Positive for congestion, sinus pressure and sneezing. Respiratory: Positive for cough. Neurological: Positive for weakness. Psychiatric/Behavioral: Positive for depression. The patient is nervous/anxious and has insomnia. Objective Physical Exam Vitals reviewed. Constitutional: Appearance: Normal appearance. HENT: Head: Normocephalic. Right Ear: A middle ear effusion is present. Left Ear: A middle ear effusion is present. Nose: Nose normal. Mouth/Throat: Mouth: Mucous membranes are moist. Pharynx: Posterior oropharyngeal erythema and postnasal drip present. Cardiovascular: Rate and Rhythm: Normal rate and regular rhythm. Pulmonary: Effort: Pulmonary effort is normal. Breath sounds: Normal breath sounds. Musculoskeletal: General: Tenderness present. Skin: General: Skin is warm and dry. Neurological: General: No focal deficit present. Mental Status: He is alert and oriented to person, place, and time. Psychiatric: Mood and Affect: Mood normal. Behavior: Behavior normal. Assessment/Plan Diagnoses and all orders for this visit: Exercise-induced asthma ([facility]) - albuterol HFA (ProAir HFA) 90 mcg/act inhaler; Inhale 2 puffs every 4 (four) hours if needed for wheezing This is a chronic medical condition that is stable since last assessment. No changes in treatment are suggested at this time. Hypertriglyceridemia (CMS/HCC) - atorvastatin (Lipitor) 20 MG tablet; Take 1 tablet (20 mg) by mouth Daily This is a chronic medical condition that is stable since last assessment. No changes in treatment are suggested at this time. Personal history of (healed) traumatic fracture - baclofen (Lioresal) 10 MG tablet; Take 1 tablet (10 mg) by mouth in the morning and 1 tablet (10 mg) in the evening and 1 tablet (10 mg) before bedtime. - gabapentin (Neurontin) 300 MG capsule; Take 1 capsule (300 mg) by mouth in the morning and 1 capsule (300 mg) in the evening and 1 capsule (300 mg) before bedtime. This is a chronic medical condition that is stable since last assessment. No changes in treatment are suggested at this time. Adjustment disorder with anxiety (CMS/HCC) - busPIRone (Buspar) 5 MG tablet; Take 1 tablet (5 mg) by mouth 3 (three) times a day as needed (anxiety) Take medication as directed. Verbalizes understanding of the need to be seen in the ER for excessive stress, elevated blood pressure or palpitations. Advised on relaxation methods to decrease anxiety and depression. Pt offers understanding of treatment plan. Adjustment disorder with depressed mood (CMS/HCC) - citalopram (CeleXA) 40 MG tablet; Take 1 tablet (40 mg) by mouth Daily Medication as directed. Counseling recommended. Verbalizes understanding of the need to be seen in the ER for suicidal/homicidal ideation, excessive stress, elevated blood pressure or palpitations. Pt offers understanding of treatment plan. I discussed the side effects of the medications described and to seek medical care if they arise. Discussed stress mgmt strategies, social support and importance of healthy diet, exercise and regular sleep habits. Advised on relaxation methods to decrease anxiety and depression. Chronic pain due to injury - gabapentin (Neurontin) 300 MG capsule; Take 1 capsule (300 mg) by mouth in the morning and 1 capsule (300 mg) in the evening and 1 capsule (300 mg) before bedtime. - traMADol (Ultram) 50 MG tablet; Take 1 tablet (50 mg) by mouth every 6 (six) hours if needed for severe pain for up to 7 days - MR thoracic spine wo contrast; Future This is a chronic medical condition that is stable since last assessment. No changes in treatment are suggested at this time. Essential (primary) hypertension (CMS/HCC) - olmesartan-hydroCHLOROthiazide (BENIcar HCT) 40-12.5 MG tablet; Take 1 tablet by mouth Daily Pt has been out of control as he has been out of his medication. Patient's blood pressure is currently well controlled. Continue with current medications and I will continue to monitor. Goal BP remains less than 130/80. Non-recurrent acute suppurative otitis media of left ear without spontaneous rupture of tympanic membrane - amoxicillin (Amoxil) 875 MG tablet; Take 1 tablet (875 mg) by mouth in the morning and 1 tablet (875 mg) before bedtime. Do all this for 10 days. Take ATB as ordered. If there is no improvement, come back to the office for further treatment. Closed fracture of seventh thoracic vertebra, unspecified fracture morphology, sequela - MR thoracic spine wo contrast; Future This is a chronic medical condition. He is having increased pain and discomfort. Will check some imaging. He may benefit from therapy. No follow-ups on file. 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 He now has no limp to his gait and his range of motion and strength are excellent. He still does have some popping in the knee and some swelling which I suspect is due to scar tissue but this continues to improve on a weekly basis. As long as he continues to improve, I will not recommend steroid injections. If anything changes he may return at any point 11/29/23 Doing well, making slow but steady progress. He does have a little bit of a limp so I am going to order additional physical therapy. Follow-up in 6 weeks time Patient History Past Surgical History: Procedure Laterality Date COLONOSCOPY KNEE SURGERY Right x2 TOTAL KNEE ARTHROPLASTY Right 10/06/2023 Past Medical History: Diagnosis Date Anxiety Asthma Chronic fatigue Chronic pain disorder Closed fracture of dorsal (thoracic) vertebra (CMS/HCC) Depression Diabetes mellitus (CMS/HCC) ED (erectile dysfunction) Hyperlipidemia Hypertension Lumbago Sinusitis Traumatic arthritis of right knee Traumatic closed displaced fracture of patella with routine healing, right Objective Exam: - Incision clean, dry, and intact. No drainage or erythema - Reasonable post-surgical ROM, swelling, and tenderness - Sensation grossly intact distally - Brisk capillary refill Assessment/Plan Toro García is a 53 y.o. 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 He does have a little bit of a limp so I am going to order additional physical therapy. Follow-up in 6 weeks time Patient History Past Surgical History: Procedure Laterality Date COLONOSCOPY KNEE SURGERY Right x2 TOTAL KNEE ARTHROPLASTY Right 10/06/2023 Past Medical History: Diagnosis Date Anxiety Asthma Chronic fatigue Chronic pain disorder Closed fracture of dorsal (thoracic) vertebra (CMS/HCC) Depression Diabetes mellitus (CMS/HCC) ED (erectile dysfunction) Hyperlipidemia Hypertension Lumbago Sinusitis Traumatic arthritis of right knee Traumatic closed displaced fracture of patella with routine healing, right Objective Exam: - Incision clean, dry, and intact. No drainage or erythema - Reasonable post-surgical ROM, swelling, and tenderness - Sensation grossly intact distally - Brisk capillary refill Assessment/Plan Toro García is a 53 y.o. 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 Patient has been WBATright lower extremity. Patient has pain controlled using percocet and norco for the first 5 days post op then motrin . Patient has not started physical therapy. Denies fevers, chills and other constitutional symptoms. Denies drainage from incision. Patient History Past Surgical History: Procedure Laterality Date COLONOSCOPY KNEE SURGERY Right x2 TOTAL KNEE ARTHROPLASTY Right 10/06/2023 Past Medical History: Diagnosis Date Anxiety Asthma Chronic fatigue Chronic pain disorder Closed fracture of dorsal (thoracic) vertebra (CMS/HCC) Depression Diabetes mellitus (CMS/HCC) ED (erectile dysfunction) Hyperlipidemia Hypertension Lumbago Sinusitis Traumatic arthritis of right knee Traumatic closed displaced fracture of patella with routine healing, right Objective Exam: - Incision clean, dry, and intact. No drainage or erythema - Reasonable post-surgical ROM, swelling, and tenderness - Sensation grossly intact distally - Brisk capillary refill Assessment/Plan Toro García is a 52 y.o. year old male s/p Right Knee Patellofemoral Replacement With Nonunion Excision - Right (10/06/2023) progressing well with recovery. -Will order physical therapy for gait training twice a week. -Return to clinic in 6 weeks YUSEF ARAUJO MS3 [facility] 10-07-2023 Note Patient: Toro Felix rge Procedure Summary Date: 10/06/23 Room / Location: [facility] OPERATING ROOM 05 / [facility] Operating Room Anesthesia Start: 1413 Anesthesia Stop: 1642 Procedure: RIGHT KNEE PATELLOFEMORAL REPLACEMENT WITH NONUNION EXCISION (Right: Knee) Diagnosis: Traumatic arthritis of right knee (Traumatic arthritis of right knee [M12.561]) Surgeons: Dariel Ku MD Responsible Provider: Gina Dailey MD Anesthesia Type: general ASA Status: 2 Anesthesia Type: general Vitals Value Taken Time BP 131/79 10/06/23 1730 Temp 36.3 ???C (97.3 ???F) 10/06/23 1640 Pulse 59 10/06/23 1730 Resp 16 10/06/23 1730 SpO2 96 % 10/06/23 1730 Anesthesia Post Evaluation Patient location during evaluation: PACU Patient participation: complete - patient participated Level of consciousness: awake and awake and alert Pain management: adequate Airway patency: patent Two or more strategies used to mitigate risk of obstructive sleep apnea Cardiovascular status: acceptable Respiratory status: acceptable Hydration status: acceptable Patient is hemodynamically stable and is able to be discharged from PACU per anesthesia protocol. No notable events documented. [facility] 10-07-2023 Note Occupational Therapy Occupational Therapy Evaluation Patient Name: Toro García : 1970 Today's Date: 10/07/2023 Time in: 1041 Time out: 1107 Surgery type: R knee patellofemoral arthroplasty excision nonunion patella Surgery date: 10/06/23 General Subjective: 52yoM presents with c/o R knee pain since work injury several years ago where pt sustained R patella fx/ORIF. Pt is also s/o R knee scope with HWR in 2020. 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 seen s/p fixation. OT Diagnosis: Decreased independence in functional tasks s/p R knee sx. Family/Caregiver Present: No RN ok for pt to be seen at this time. Pt semi-fowlers upon arrival and agreeable to session. Pt completed functional tasks, functional ambulation. Pt was left sitting in chair with call light and needs in reach. RN aware of pt performance. Pt ok to discharge home on this day, no additional acute OT needs. Patient Active Problem List Diagnosis Closed fracture of right patella Traumatic arthritis of right knee Depressive disorder Essential hypertension Exercise-induced asthma Hypertriglyceridemia Patella fracture Past Medical History: Diagnosis Date Anxiety Asthma Chronic fatigue Chronic pain disorder Closed fracture of dorsal (thoracic) vertebra (CMS/HCC) Depression Diabetes mellitus (CMS/HCC) ED (erectile dysfunction) Hyperlipidemia Hypertension Lumbago Sinusitis Traumatic arthritis of right knee Traumatic closed displaced fracture of patella with routine healing, right Past Surgical History: Procedure Laterality Date COLONOSCOPY KNEE SURGERY Right x2 TOTAL KNEE ARTHROPLASTY Right 10/06/2023 Precautions Precautions LE Weight Bearing Status: Right, WBAT Medical Precautions: immobilizer (KI on at all times.) Splints Applied: KI on upon entry to room. to be worn at all times. Pain Pain Assessment Pain Assessment: 0-10 Pain Score: 4 Pain Type: Acute pain, Surgical pain Pain Location: Knee Pain Orientation: Right Pain Interventions: Cold applied, Repositioned Cognition Cognition Overall Cognitive Status: Within Functional Limits Arousal/Alertness: Appropriate responses to stimuli Orientation Level: Oriented X4 Following Commands: Follows all commands and directions without difficulty Safety Judgment: Good awareness of safety precautions Awareness of Errors: Good awareness of errors made Deficits: Fully aware of deficits Attention Span: Appears intact Memory: Appears intact Problem Solving: Able to problem solve independently Communication: Intact General Assessment General Assessment Hearing: WFL Skin Integrity: All visible skin intact Home Living Home Living Type of Home: House Lives With: Spouse, Family (, three other adults, grandkids.) Home Adaptive Equipment: Walker rolling, Cane Home Layout: 1/2 bath on main level, Full bath main level, Bed/bath upstairs, Able to live on main level with bedroom/bathroom, Stairs to alternate level with rails (able to sleep on main level if needed.) Alternate Level Stairs-Rails: Left Alternate Level Stairs-Number of Steps: 13 Home Access: Stairs to enter with rails Entrance Stairs-Rails: Both Entrance Stairs-Number of Steps: 3 Bathroom Shower/Tub: Tub/shower unit Bathroom Toilet: Standard Bathroom Equipment: Grab bars in shower, Hand-held shower Prior Level of Function Prior Function Level of [place]: Independent with ADLs and functional transfers, Independent with homemaking with ambulation Prior Functional Mobility: Independent without device Receives Help From: Family ADL Assistance: Independent Homemaking Assistance: Independent Driving: Independent Vocational: maritime engineer employment Prior IADLs Static Sitting Balance Static Sitting Balance Static Sitting-Balance Support: No upper extremity supported, Feet supported Static Sitting-Level of Assistance: Independent Dynamic Sitting Balance Dynamic Sitting Balance Dynamic Sitting-Balance Support: No upper extremity supported, Feet supported Dynamic Sitting-Balance: Reaching for objects, Forward lean, Reaching across midline Dynamic Sitting Balance-Level of Assistance: Distant supervision Static Standing Balance Static Standing Balance Static Standing-Balance Support: Right upper extremity supported, Left upper extremity supported, With device Static Standing-Level of Assistance: Distant supervision Dynamic Standing Balance Dynamic Standing Balance Dynamic Standing-Balance Support: Right upper extremity supported, Left upper extremity supported, With device Dynamic Standing-Balance: Reaching for objects Dynamic Standing Balance-Level of Assistance: Distant supervision ADL ADL Grooming Assistance: Independent Grooming Deficit: Wash/dry hands UE Dressing Assistance: Independent LE Dressing Assistance: Minimal LE Dressing Deficit: (Pt educ (more content not included)... [facility] 10-07-2023 Note Physical Therapy Physical Therapy Evaluation Patient Name: Toro García : 1970 Today's Date: 10/07/2023 General Family/Caregiver Present: No Subjective: 52 y.o. male c/o R knee pain since work injury several years ago w/ R patella fx/ORIF. S/p R knee scope with HWR 2020. X-ray shows superior pole non-union of patella, post-traumatic changes. Admit 10/06/23 for R knee patellofemoral arthroplasty, excision non-union patella. Pt supine upon arrival, agreeable to PT. Pt amb in lopez and performed stairs. Returned to room to sit in chair with LEs elevated, call light given. PT Diagnosis: Decreased functional mobility s/p R knee surgery Patient Active Problem List Diagnosis Closed fracture of right patella Traumatic arthritis of right knee Depressive disorder Essential hypertension Exercise-induced asthma Hypertriglyceridemia Patella fracture Past Medical History: Diagnosis Date Anxiety Asthma Chronic fatigue Chronic pain disorder Closed fracture of dorsal (thoracic) vertebra (CMS/HCC) Depression Diabetes mellitus (CMS/HCC) ED (erectile dysfunction) Hyperlipidemia Hypertension Lumbago Sinusitis Traumatic arthritis of right knee Traumatic closed displaced fracture of patella with routine healing, right Past Surgical History: Procedure Laterality Date COLONOSCOPY KNEE SURGERY Right x2 TOTAL KNEE ARTHROPLASTY Right 10/06/2023 Precautions Precautions LE Weight Bearing Status: Right, WBAT Medical Precautions: immobilizer Braces Applied: Knee immobilizer at all times. Pain Pain Assessment Pain Assessment: 0-10 Pain Score: 4 Pain Type: Acute pain, Surgical pain Pain Location: Knee Pain Orientation: Right Pain Interventions: Cold applied Cognition Cognition Overall Cognitive Status: Within Functional Limits Arousal/Alertness: Appropriate responses to stimuli Following Commands: Follows all commands and directions without difficulty Safety Judgment: Good awareness of safety precautions Awareness of Errors: Good awareness of errors made Attention Span: Appears intact Communication: Intact General Assessment General Assessment Hearing: WFL Skin Integrity: Surgical site- not visualized. Home Living Home Living Type of Home: House Lives With: Spouse, Family Home Adaptive Equipment: Walker rolling, Cane Home Layout: 1/2 bath on main level, Full bath main level, Bed/bath upstairs, Able to live on main level with bedroom/bathroom, Stairs to alternate level with rails Alternate Level Stairs-Rails: Left Alternate Level Stairs-Number of Steps: 13 Home Access: Stairs to enter with rails Entrance Stairs-Rails: Both Entrance Stairs-Number of Steps: 3 Bathroom Shower/Tub: Tub/shower unit Bathroom Toilet: Standard Bathroom Equipment: Grab bars in shower, Hand-held shower Prior Level of Function Prior Function Level of [place]: Independent with ADLs and functional transfers, Independent with homemaking with ambulation Prior Functional Mobility: Independent without device Receives Help From: Family ADL Assistance: Independent Homemaking Assistance: Independent Driving: Independent Vocational: maritime engineer employment Vision Basic Assessment Vision - Basic Assessment Current Vision: Wears glasses all the time Activity Tolerance Activity Tolerance Endurance: Stage IV Stage IV (METs 3.0-3.5) - Standin-10 mins General Assessments Activity Tolerance Endurance: Stage IV Stage IV (METs 3.0-3.5) - Standin-10 mins Sensation Light Touch: No apparent deficits Coordination Movements are Fluid and Coordinated: Yes Postural Control Posture Assessment: WFL Postural Control: Within Functional Limits Static Sitting Balance Static Sitting-Balance Support: No upper extremity supported, Feet supported Static Sitting-Level of Assistance: Independent Dynamic Sitting Balance Dynamic Sitting-Balance Support: No upper extremity supported, Feet supported Dynamic Sitting-Balance: Forward lean, Reaching for objects Dynamic Sitting Balance-Level of Assistance: Distant supervision Static Standing Balance Static Standing-Balance Support: Right upper extremity supported, Left upper extremity supported, With device Static Standing-Level of Assistance: Close supervision Dynamic Standing Balance Dynamic Standing-Balance Support: Right upper extremity supported, Left upper extremity supported, With device Dynamic Standing Balance-Level of Assistance: Close supervision Functional Assessments Bed Mobility Bed Mobility: Yes Bed Mobility 1 Bed Mobility From 1: Supine Bed Mobility Type 1: To and from Bed Mobility to 1: Short sit Level of Assistance 1: Close supervision Bed Mobility Comments 1: x2 Transfers Transfer: Yes Transfer 1 Transfer From 1: Sit, Bed Transfer Type 1: To and from Transfer to 1: Stand Technique 1: Sit to stand, Stand to sit Transfer Device 1 (more content not included)... [facility] 10-07-2023 Note 10/07/23 0926 Referral Data Referral Source pediatric social worker Referral Reason Information Patient Information Primary Caregiver Self Activities of Daily Living Assistive Device Walker;Crutches Living Arrangement (Current/Prior to Hospitalization) Private residence (2 story) Ambulation Independent Dressing Independent Feeding Independent Behavior Oriented Communication Can write;Talks;Understands speaking Discharge Planning Support Systems Spouse/significant other;Children Patient's goal for discharge Home no needs Pt is alert and ox4. Pt lives with and 2 adult children who are able to physically assist if needed. Pt lives in 2 story residence with 3 steps to get inside. Bed and bath are on the second floor, the staircase is 13 steps. Pt had no trouble going up and down the stairs. Pt does have DME including a walker and crutches but does not use it. Pt has no history with C or SNF organizations. Pt is able to pay for basic needs. Pt stated he does not drink, smoke, or do drugs. Pts goal upon discharge is home no needs. Pending OT/PT recs. [facility] 10-07-2023 Note Orthopaedic Surgery Orthopaedic Surgery Progress Note Date: 10/07/2023 Surgery: 10/06/2023 - RIGHT KNEE PATELLOFEMORAL REPLACEMENT WITH NONUNION EXCISION (R) SUBJECTIVE/24h events: NAEON. Pain well controlled. Has not been up to commode yet. She denies new onset weakness, numbness, tingling. Denies CP, SOB, NVD, abdominal pain, additional/systemic symptoms. OBJECTIVE BP 120/65 (BP Location: Left arm, Patient Position: Lying) Pulse 62 Temp 37.2 ???C (99 ???F) (Oral) Resp 16 Ht 1.753 m (5' 9 ) Wt 102 kg (224 lb 6.9 oz) SpO2 95% BMI 33.14 kg/m??? General: A/O x3, resting comfortably in bed, cooperative MSK: RLE - Dressings CDI, KI in place - Compartments soft / compressible - SILT in superficial peroneal, deep peroneal, sural, saph nerve dist - Motor function intact in tibial, deep peroneal, superficial peroneal dist - Brisk capillary refill Labs: Lab Results Component Value Date WBC 6.18 12/03/2020 HGB 14.9 12/03/2020 HCT 45.1 12/03/2020 MCV 84.3 12/03/2020 PLT 263 12/03/2020 Lab Results Component Value Date GLU 92 12/03/2020 CALCIUM 9.5 12/03/2020 CO2 30 12/03/2020 BUN 12 12/03/2020 Lab Results Component Value Date INR 0.93 12/03/2020 Imaging: @[email or web address]@ ASSESSMENT: Toro García is a 52 y.o. male with R patella fx s/p ORIF with loose body and PF arthritis. 1 Day Post-Op RIGHT KNEE PATELLOFEMORAL REPLACEMENT WITH NONUNION EXCISION (R) PLAN Weightbearing as tolerated RLE Abx: 24hrs Ancef, DC 5 days Keflex DVT ppx: ASA 325mg, daily 7 days PT/OT Pain control: Multimodal Dressing: Do not remove dressing, may reinforce as necessary Anticipating Discharge later today. Dariel Bland MD Orthopaedic Surgery, PGY-3 Ortho Pager [phone] 10/07/23 6:30 AM I am available via [employer] 6a-6p. May contact the on-call resident with any concerns via the Orthopaedic pager at any time. [facility] 10-06-2023 Note Patient: Toro hartley Procedure Summary Date: 10/06/23 Room / Location: [facility] OPERATING ROOM 05 / [facility] Operating Room Anesthesia Start: 1412 Anesthesia Stop: Procedure: RIGHT KNEE PATELLOFEMORAL REPLACEMENT WITH NONUNION EXCISION (Right: Knee) Diagnosis: Traumatic arthritis of right knee (Traumatic arthritis of right knee [M12.561]) Surgeons: Dariel Ku MD Responsible Provider: Gina Dailey MD Anesthesia Type: general ASA Status: 2 Anesthesia Post Transport Note Transport to: PACU O2 Route: room air Patient Monitor: direct observation Transport: uneventful Patient condition is: stable [facility] 10-06-2023 Note Airway Date/Time: 10/06/2023 2:21 PM Urgency: elective Airway not difficult General Information and Staff Patient location during procedure: OR Anesthesiologist: Gina Dailey MD Resident/REGISTRAR NURSES' REGISTRY/CAA: JAY Zhou Performed: resident/REGISTRAR NURSES' REGISTRY/CAA Indications and Patient Condition Indications for airway management: anesthesia Spontaneous Ventilation: absent Sedation level: deep Preoxygenated: yes Patient position: sniffing Mask difficulty assessment: 1 - vent by mask Final Airway Details Final airway type: endotracheal airway Successful airway: ETT Cuffed: yes Successful intubation technique: direct laryngoscopy Endotracheal tube insertion site: oral Blade: Wilmer Blade size: #4 ETT size (mm): 7.5 Cormack-Lehane Classification: grade I - full view of glottis Placement verified by: chest auscultation and capnometry Measured from: lips ETT to lips (cm): 23 Number of attempts at approach: 1 Number of other approaches attempted: 0 [facility] 10-06-2023 Note Patient: Toro hartley Procedure Information Anesthesia Start Date/Time: 10/06/231412 Procedure: KNEE PATELLOFEMORAL ARTHROPLASTY/REPLACEMENT WITH BONY NONUNION EXCISION (Right: Knee) - C-ARM, ARTHROSURFACE NOTIFIED 09/28 Location: [facility] OPERATING ROOM 05 / [facility] Operating Room Surgeons: Dariel Ku MD Relevant Problems No relevant active problems Clinical information reviewed: Tobacco Allergies Meds Med Hx Surg Hx Fam Hx Soc Hx Physical Exam Airway Mallampati: II TM distance: >3 FB Neck ROM: full Cardiovascular - normal exam Rhythm: regular Rate: normal Dental - normal exam Pulmonary - normal exam Breath sounds clear to auscultation Abdominal - normal exam Abdomen: soft Bowel sounds: normal Anesthesia Plan ASA 2 general The patient is not a current smoker. Patient was not previously instructed to abstain from smoking on day of procedure. Patient did not smoke on day of procedure. intravenous induction Postoperative administration of opioids is intended. Anesthetic plan and risks discussed with patient. Use of blood products discussed with patient who consented to blood products. Plan discussed with CAA. Additional Equipment Requests [facility] 10-06-2023 Note Peripheral Block Patient location during procedure: pre-op Start time: 10/06/2023 1:44 PM End time: 10/06/2023 1:59 PM Reason for block: at surgeon's request and post-op pain management Staffing Performed: resident/REGISTRAR NURSES' REGISTRY/CAA Anesthesiologist: Gina Dailey MD Resident/REGISTRAR NURSES' REGISTRY: Flynn Esquivel MD Preanesthetic Checklist Completed: patient identified, IV checked, site marked, risks and benefits discussed, surgical consent, monitors and equipment checked, pre-op evaluation and timeout performed Peripheral Block Patient position: supine Prep: ChloraPrep Patient monitoring: continuous pulse ox and heart rate Block type: adductor canal block Laterality: right Injection technique: single-shot Guidance: ultrasound guided Needle Needle type: short-bevel Needle gauge: 21 G (20) Needle length: 4 in Needle localization: anatomical landmarks and ultrasound guidance Needle insertion depth: 8 cm Test dose: negative Medications Administered fentaNYL (SUBLIMAZE) IV - intravenous 50 mcg - 10/06/2023 1:44:00 PM midazolam (VERSED) IV - intravenous 2 mg - 10/06/2023 1:44:00 PM bupivacaine HCl (Marcaine) 0.5 % (5 mg/mL) injection - injection 100 mg - 10/06/2023 1:44:00 PM Assessment Injection assessment: negative aspiration for heme, local visualized surrounding nerve on ultrasound, no paresthesia on injection, incremental injection and transient paresthesias Paresthesia pain: none Heart rate change: no Slow fractionated injection: yes [facility] Evaluation note Diagnosis Essential hypertension (CMS/HCC)- Primary Unspecified essential hypertension Adjustment disorder with anxiety (CMS/HCC) Adjustment disorder with anxiety Personal history of (healed) traumatic fracture Exercise-induced asthma (CMS/HCC)- Primary Exercise induced bronchospasm Hypertriglyceridemia (CMS/HCC) Pure hyperglyceridemia Personal history of (healed) traumatic fracture Adjustment disorder with anxiety (CMS/HCC) Adjustment disorder with anxiety Adjustment disorder with depressed mood (CMS/HCC) Adjustment disorder with depressed mood Chronic pain due to injury Chronic pain due to trauma Essential (primary) hypertension (CMS/HCC) Unspecified essential hypertension Non-recurrent acute suppurative otitis media of left ear without spontaneous rupture of tympanic membrane Closed fracture of seventh thoracic vertebra, unspecified fracture morphology, sequela documented in this encounter [facility] Summary Purpose Family History No Family History Records FoundNo Family History Records FoundNo Family History Records FoundNo Family History Records FoundNo Family History Records Found Advance Directives No Advanced Directives Records FoundNo Advanced Directives Records FoundNo Advanced Directives Records FoundNo Advanced Directives Records FoundNo Advanced Directives Records Found Additional Source Comments (unrecognized sect ion and content) No Status Records FoundNo Status Records FoundNo Status Records FoundNo Status Records FoundNo Status Records Found INFORMATION SOURCE (unrecogn ized section and content) DATE CREATED AUTHOR 12/31/2021 [facility] DATE CREATED AUTHOR AUTHOR'S ORGANIZ ATION 03/20/2022 [facility] DATE CREATED AUTHOR AUTHOR'S ORGANIZ ATION 06/08/2023 [facility] DATE CREATED AUTHOR AUTHOR'S ORGANIZ ATION 10/02/2024 [facility] DATE CREATED AUTHOR AUTHOR'S ORGANIZ ATION 10/03/[address] [facility] Care Teams (unrecognized sec tion and content) Sack Cleaner Relationship Specialty Start Date End Date Yeny Shields MD [address] [facility] [address] [place] [address] PCP - Clarence Commercial 12/19/20 Yeny Shields MD [address] [facility] [address] [place] [address] PCP - General Family Medicine 01/26/23 Sack Cleaner Relationship Specialty Start Date End Date Yeny Shields MD [address] [facility] [address] [place] [id number] PCP - [facility] 12/19/20 Yeny Shields MD [address] [facility] [address] [place] [address] PCP - General Family Medicine 01/26/23 FOR RECORDS PERTAINING TO PATIENTS WHO ARE OR HAVE BEEN ENROLLED IN A CHEMICAL DEPENDENCY/SUBSTANCEABUSE PROGRAM, SOME INFORMATION MAY BE OMITTED. This clinical summary was aggregated from multiple sources. Caution should be exercised in using it in the provision of clinical care. This summary normalizes information from multiple sources, and as a consequence, information in this document may materially change the coding, format and clinical context of patient data. In addition, data may be omitted in some cases. CLINICAL DECISIONS SHOULD BE BASED ON THE PRIMARY CLINICAL RECORDS. [facility] provides no warranty or guarantee of the accuracy or completeness of information in this document.
--- NOTE | 2024-10-19 15:09 | XR_ITS ---
The [address] [address] Patient Name: TORO GARCÍA MRN: [id number] date: 1970 Sex: M Assigned Patient Location: MRI Current Patient Location: MRI Accession/Order Number: [id number] Exam Date: 10/19/2024 15:10 Report Date: 10/19/2024 15:27 At the request of: FAVIAN HARDING Procedure: XR foreign body eye VINCENT EXAMINATION: XR foreign body eye VINCENT HISTORY: HISTORY OF WELDING COMPARISON: No relevant comparison available. FINDINGS: ORBITS: Negative for a metallic foreign body. OTHER: Negative. XR/XR foreign body eye VINCENT IMPRESSION: 1. No radiopaque foreign body. Electronically authenticated by: ADDY FISHER Date: 10/19/2024 15:27
== END 2024-10-19 14:59 | disposition home or self-care (01) ==
LOC: MRI 14:58
PROVIDERS: PCP Family Medicine; Visit Provider Nurse Practitioner Family
DX: G89.21 Chronic pain due to trauma (principal); S22.069S Unspecified fracture of T7-T8 vertebra, sequela
CPT/HCPCS: 70030; 72146

== ENCOUNTER 2025-01-22 14:20 | Outpatient (RCR) | payer BC, SELFPAY | END 2025-02-10 08:49 | disposition home or self-care (01) | LOC: PT 14:20 | PROVIDERS: PCP Family Medicine; Visit Provider Nurse Practitioner Family | DX: M54.12 Radiculopathy, cervical region (principal) | CPT/HCPCS: 97012; 97110; 97140; 97161 ==